=== PATIENT | female | born 1990 | race American Indian/Alaskan Native ===

== ENCOUNTER 2017-10-29 20:51 | Inpatient (IN) | payer MEDICAID, OTHER ==
[2017-10-29] MEDS ORDERED: NORMOSOL-R PH 7.4 1,000 ML IV ONE ×2 (22:28→23:04)
[2017-10-29] MEDS ORDERED: REGLAN IV ONE (23:14)
[2017-10-29] MEDS ORDERED: BICITRA PO ONE (23:14)
[2017-10-29 23:18] LABS: Hematocrit 26.1 % (30.3-42.9); Mean Corpuscular HGB Conc 31 % (30-34); Mean Corpuscular Volume 77 fl (79-97); Platelet Count 290 K/mm3 (140-440); Red Blood Count 3.37 M/mm3 (3.65-5.03); Red Cell Distribution Width 17.3 % (13.2-15.2)
[2017-10-29] MEDS ORDERED: PEPCID IV ONE (23:21)
[2017-10-29] MEDS ORDERED: PITOCin/NS 20 UNIT/1000ML DRIP 20,000 MILLIUNITS/1,000 ML BAG IV ONE (23:22)
[2017-10-29] MEDS ORDERED: ANCEF/STERILE WATER 2 GM/20 ML 2 GM/20 ML SYRINGE IV ONE (23:22)
[2017-10-29 23:26] LABS: Mean Corpuscular Hemoglobin 24 pg (28-32)
[2017-10-29] MEDS ORDERED: NORMOSOL R PH IV NR (23:45)
--- NOTE | 2017-10-29 23:46 | Anesthesia Consultation ---
Anesthesia Consult and Med Hx Date of service: 10/29/17 - Airway Anesthetic Teeth Evaluation: Good ROM Head & Neck: Adequate Mental/Hyoid Distance: Adequate Mallampati Class: Class II Intubation Access Assessment: Probably Good - Pulmonary Exam CTA: Yes - Cardiac Exam Cardiac Exam: RRR - Pre-Operative Health Status ASA Pre-Surgery Classification: ASA3, Emergency Proposed Anesthetic Plan: Epidural, Spinal - Pulmonary Hx Asthma: No COPD: No Hx Pneumonia: No - Cardiovascular System Hx Hypertension: No - Central Nervous System Hx Seizures: Yes (after twin delivery in 2012) Hx Psychiatric Problems: No - Endocrine Hx Renal Disease: No Hx End Stage Renal Disease: No Hx Non-Insulin Dependent Diabetes: Yes (gestational) Hx Hypothyroidism: No Hx Hyperthyroidism: No - Hematic Hx Anemia: No Hx Sickle Cell Disease: No - Other Systems Hx Alcohol Use: No Hx Obesity: Yes (morbid)
--- NOTE | 2017-10-29 23:46 | Anesthesia Day of Surgery ---
Anesthesia Day of Surgery - Day of Surgery Patient Examined: Yes Patient H&P Reviewed: Yes Patient is NPO: No
[2017-10-29] MEDS ORDERED: NACL 0.9% 500 ML 500 ML IV ONE ×2 (23:50→23:51)
--- NOTE | 2017-10-29 23:54 | History and Physical Report ---
History of Present Illness Date of examination: 10/29/17 Date of admission: 10/29/17 23:21 Chief complaint: NRFHTs History of present illness: Pt is a 27 year old -[place] female CANDIS 11/17/17 at 37w2d with di -di twin gestation presents to triage secondary to contractions. While in observation twin B was noted to have multiple deep variable decelerations down to the 60s with return to baseline. The decision was made to proceed with delivery secondary to nonreassuring status. The patient does not desire further fertility. She denies leakage of fluid or vaginal bleeding. She has had care per [facility] [facility] since 13 weeks with comanagement by a MFM. Her has also been, given by gestational diabetes A2 on glyburide. She also has a history of PIH and eclampsia as well as a history of anemia on iron twice daily. She has a history of genital herpes. She is GBS negative. 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: abnormal PAP smear, chlamydia (remote from ), herpes Family/Genetic History: hypertension, cancer Social history: no significant social history - Obstetrical History Expected Date of Delivery: 11/17/17 Actual Gestation: 37 Week(s) 3 Day(s) : 6 Para: 3 Hx # Term Pregnancies: 3 Number of Pregnancies: 0 Spontaneous Abortions: 0 Induced : 2 Number of Living Children: 4 Medications and Allergies Allergies Allergy/AdvReac Type Severity Reaction Status Date / Time No Known Allergies Allergy Unverified 04/27/13 11:59 Home Medications Medication Instructions Recorded Confirmed Last Taken Type Doxylamine Succinate/Vit B6 1 each PO Q6HR PRN #30 tablet. 07/16/15 01/14/16 Unknown Rx [Melissa Bolaños 10-10 mg Tablet] Active Meds: Active Medications Famotidine (Pepcid) 20 mg IV ONCE ONE Stop: 10/30/17 23:15 Parenteral Electrolytes (Normosol-R Ph 7.4) 1,500 mls @ 2,250 mls/hr IV PREOP NR Stop: 10/30/17 00:00 Sodium Chloride (Nacl 0.9% 500 Ml) 500 mls @ 0 mls/hr IV ONCE ONE Stop: 10/29/17 23:51 Sodium Chloride (Nacl 0.9% 500 Ml) 500 mls @ 0 mls/hr IV ONCE ONE Stop: 10/29/17 23:52 Review of Systems All systems: negative - Vital Signs Vital signs: Vital Signs Temp Resp 98.3 F 18 10/29/17 21:02 10/29/17 21:02 Temp Pulse Resp BP Pulse Ox 98.3 F 18 10/29/17 21:02 10/29/17 21:02 - Physical Exam Breasts: Positive: deferred Cardiovascular: Regular rate Lungs: Positive: Clear to auscultation Abdomen: Positive: soft (gravid, obese) Uterus: Positive: enlarged (gravid ) Extremities: Positive: normal - Obstetrical FHR: category 2 Uterine Contraction Monitor Mode: External Uterine Contraction Pattern: Irregular Uterine Tone Measurement Phase: Resting Uterine Contraction Intensity: Mild Results Result Diagrams: 10/29/17 22:40 Abnormal lab results 10/29/17 Range/Units 22:40 RBC 3.37 L (3.65-5.03) M/mm3 Hgb 8.0 L (10.1-14.3) gm/dl Hct 26.1 L (30.3-42.9) % MCV 77 L (79-97) fl MCH 24 L (28-32) pg RDW 17.3 H (13.2-15.2) % All other labs normal. Assessment and Plan A: Di-di twin IUP at 37w2d Nonreassuring status Undesired Fertility Anemia Genital Herpes Gestational Diabetes A2 GBS negative H/o eclampsia P: Proceed with primary section, bilateral tubal ligation and other indicated procedures.
[2017-10-30] MEDS ORDERED: NACL 0.9% IR ONE
[2017-10-30] MEDS ORDERED: WATER FOR IRRIG STERILE IR ONE
[2017-10-30] MEDS ORDERED: METHERGINE IM ONE (00:25)
[2017-10-30] MEDS ORDERED: ANCEF/STERILE WATER 2 GM/20 ML IV ONE (00:35)
[2017-10-30] MEDS ORDERED: DIPRIVAN 10 MG/ML IV ONE (00:47)
[2017-10-30] MEDS ORDERED: SUBLIMAZE ONE (00:50)
[2017-10-30] MEDS ORDERED: XYLOCAINE MPF 2% ONE (00:56)
[2017-10-30] MEDS ORDERED: QUELICIN ONE (00:56)
[2017-10-30] MEDS ORDERED: NEO SYNEPHRINE/NS Syringe(OR USE) IV ONE (01:00)
[2017-10-30] MEDS ORDERED: ARTIFICIAL TEARS OPHTH OINT ONE (01:05)
[2017-10-30] MEDS ORDERED: LACTATED RINGERS 2,000 ML ONE (01:19)
[2017-10-30] MEDS ORDERED: DILAUDID IV PRN (02:11)
[2017-10-30] MEDS ORDERED: ZOFRAN IV PRN (02:11)
--- NOTE | 2017-10-30 02:11 | Post Anesthesia Evaluation ---
- Post Anesthesia Evaluation Patient Participated: Yes Airway Patent: Yes Stable Respiratory Function: Yes Temp > 96.8F: Yes Pain Manageable: Yes Adequeate Hydration: Yes Anesthesia Complications: No
[2017-10-30] MEDS: DILAUDID IV PRN ×3 (02:15→02:45)
--- NOTE | 2017-10-30 02:17 | Procedure Note ---
OB Delivery Note - Delivery Date of Delivery: 10/30/17 Surgeon: MARISA PERES Social Services Counselor: ANA HAMPTON Estimated blood loss: other (1300 mL) - Section Preop diagnosis: nonreassuring FHR tracing, desires sterilization Postop diagnosis: same section procedure: section, primary low transverse, bilateral tubal ligation Disposition: PACU Complications: intra-op hemorrhage Narrative: Please see operative note. - Infant A at 1 minute: 1 at 5 minutes: 6 Infant Gender: Female (3256g (7lb 7oz) @ 0043 am) B at 1 minute: 1 at 5 minutes: 6 Gender: Female (2413g (5lb 5oz) @ 0044 am)
--- NOTE | 2017-10-30 02:17 | Operative Report ---
Operative Report Operative Report: Date of procedure: October 30, 2017 Preoperative diagnosis:1) Di-Di Twin IUP at 37w3d 2) Nonreassuring status 3) Malpresentation 4) Undesired Fertility Postoperative diagnosis: Same Procedure: 1) Primary low transverse section 2) Bilateral tubal ligation via Meckling Method Surgeon: Sania Leon M.D. Neuroradiologist: Jennifer Alaniz M.D. Anesthesia: GETA Findings: 1) Twin A: Viable female , Apgars 1,6 and 8, weight 3256 g, (7 lb 7 oz) in sebas breech presentation. Terminal Meconium Twin B: Viable female , Apgars 1,6 and 8, weight 2413 g, (5lb 5oz) in vertex presentation. Meconium stained amniotic fluid. 2) Normal-appearing uterus ovaries and tubes Estimated blood loss: 1300 mL IV fluids: 2700 mL Urine output: 125 mL, clear at the end of the procedure Drains: Payton to gravity Specimens: Placenta to pathology Disposition: Stable to PACU Indication for procedure: The patient is a 27-year-old -[place] female 6 para 30-4 at 37 weeks 2 days with Di-Di twin gestation who presented for contractions and was found to have nonreassuring status. The decision was made to proceed with delivery. The patient does not desire further fertility. Operation in detail: After the risks, benefits, alternatives and complications were explained to the patient she gave informed consent for the procedure. She was subsequently taken to the operating room where multiple attempts were made to obtain regional anesthesia were unsuccessful. heart tones were noted to be in the 160s. She was subsequently placed in the dorsal supine position with leftward tilt and prepped and draped in a normal sterile fashion. A timeout was performed. General endotracheal anesthesia was then induced without difficulty. A Pfannenstiel skin incision was made with the knife and carried down to the layer of the fascia with the Bovie. The fascia was incised in the midline and the fascial incision was extended bilaterally with the Bovie. The rectus muscles were then in the midline. The peritoneum was then entered bluntly. The peritoneal incision was extended with good visualization of the bladder. The peritoneal incision was then stretched. An John self-retaining retractor was placed for visualization. The bladder blade was placed. The vesicouterine peritoneum was grasped with smooth pickups and incised with Metzenbaum scissors. Metzenbaum scissors were used to extend the incision bilaterally. The bladder flap was then created digitally and the bladder blade was replaced. A transverse incision was made in the lower uterine segment with a knife and extended bilaterally with the bandage scissors. Twin A's buttocks were delivered, followed by legs, torso arms and head. She was bulb suctioned, the cord was clamped and cut and she was handed to waiting NICU staff. Amniotomy of second sac yielded meconium stained fluid. Twin B's head was delivered without difficulty followed by shoulders and body. was bulb suctioned at delivery, the cord was clamped and cut and handed to waiting NICU staff in attendance. The placentas were then delivered manually. The uterus was then exteriorized and cleared of all clots and debris. Uterine atony was noted and additional pitocin was added to the IV fluid. The hysterotomy was then reapproximated with 0 Vicryl in a running locked fashion. A second layer of the same suture was used in imbricating fashion. Additional [id number] of 2-0 and 0 Vicryl were used to obtain hemostasis at the right apex of the incision. Hemostasis was noted. Attention was then turned to the tubal ligation. The right tube was identified and followed to to the fimbriae. The tube was then grasped with a Erie and ligated via the Meckling method using 0 Chromic. Attention was then turned to the left tube which in a similar fashion was followed down to the fimbriae, grasped with a Casey, and ligated via the Meckling method using 0 Vicryl. Hemostasis was noted. The hysterotomy was inspected and hemostasis was noted. The uterus was then returned to the peritoneal cavity. All instruments were removed from the abdominal cavity. The gutters were irrigated and cleared of all clots and debris. The hysterotomy was again inspected and noted to be hemostatic. Surgicel was then placed over the hysterotomy. The peritoneum was reapproximated with 2-0 Vicryl in a running fashion incorporating the rectus muscles. The fascia was reapproximated with 0 Vicryl in a running fashion. The subcutaneous tissue was reapproximated with 3-0 Vicryl in a running fashion. The skin was reapproximated with 4-0 Vicryl in a subcuticular fashion. The incision was then covered with steri strips and a pressure dressing. The procedure was then ended. The patient tolerated the procedure well. She was subsequently extubated without difficulty and was taken to the PACU in stable condition. All instrument, lap, and needle counts were correct 3.
[2017-10-30] MEDS ORDERED: DILAUDID ONE (02:18)
[2017-10-30] MEDS ORDERED: NARCAN 0.4 MG/1 ML IV PRN ×3 (02:49→04:39)
[2017-10-30] MEDS ORDERED: NACL 0.9% 1000 ML 1,000 ML IV SCH ×2 (03:00→04:39)
[2017-10-30] MEDS ORDERED: MORPHINE PCA 30MG/30ML IV SCH ×2 (03:00→04:39)
[2017-10-30 04:36] LABS: Mean Corpuscular HGB Conc 28 % (30-34); Mean Corpuscular Volume 82 fl (79-97); Platelet Count 284 K/mm3 (140-440); Red Blood Count 2.79 M/mm3 (3.65-5.03); Red Cell Distribution Width 17.9 % (13.2-15.2)
[2017-10-30 04:39] LABS: Hematocrit 22.8 % (30.3-42.9); Hemoglobin 6.4 gm/dl (10.1-14.3); Mean Corpuscular Hemoglobin 23 pg (28-32)
[2017-10-30] MEDS ORDERED: PITOCin/NS 20 UNIT/1000ML DRIP 20 UNITS/1,000 ML BAG IV SCH ×2 (04:39)
[2017-10-30] MEDS ORDERED: BENADRYL IV PRN (04:39)
[2017-10-30] MEDS ORDERED: MYLICON PO PRN (04:39)
[2017-10-30] MEDS ORDERED: ANCEF/NS 1 GM/50 ML 1 GM/50 ML BAG IV SCH (04:39)
[2017-10-30] MEDS ORDERED: LANSINOH TP PRN (04:39)
[2017-10-30] MEDS ORDERED: TORADOL IV PRN (04:39)
[2017-10-30] MEDS ORDERED: TYLENOL PO PRN (04:39)
[2017-10-30] MEDS ORDERED: TUCKS PAD TP PRN (04:39)
[2017-10-30] MEDS ORDERED: D5LR 1,000 ML IV SCH (04:39)
[2017-10-30] MEDS ORDERED: SODIUM CHLORIDE FLUSH SYRINGE 10 ML IV NR (04:39)
[2017-10-30] MEDS ORDERED: LACTATED RINGERS 1,000 ML IV SCH (05:00)
[2017-10-30] MEDS ORDERED: HumuLIN R SUB-Q SCH (07:30)
[2017-10-30] MEDS: FEOSOL PO SCH ×2 (09:48→21:08)
[2017-10-30] MEDS: PERCOCET 5/325 PO PRN ×3 (11:02→21:09)
[2017-10-30] MEDS: ceFAZolin 1 GM in NACL 0.9% 20 ML IV SCH ×2 (15:00→23:19)
[2017-10-30 21:18] LABS: Hematocrit 25.9 % (30.3-42.9); Hemoglobin 8.4 gm/dl (10.1-14.3)
[2017-10-30] MEDS ORDERED: MILK OF MAGNESIA PO PRN (22:00)
[2017-10-30] MEDS ORDERED: PEPCID IV ONE (23:14)
[2017-10-31] MEDS: PERCOCET 5/325 PO PRN ×4 (01:13→17:55)
[2017-10-31] MEDS ORDERED: BOOSTRIX IM ONE (06:00)
[2017-10-31] MEDS: MOTRIN PO PRN (09:26)
[2017-10-31] MEDS ORDERED: M-M-R II VACCINE SUB-Q ONE (10:00)
--- NOTE | 2017-10-31 10:51 | Progress Note ---
Assessment and Plan POD#1 s/p c/sec twins s/p blood transfusion 6.4--8.4 mag citrate iron for anemia encourage ambulation VSS continue routine pot op orders discontinue accu checks Subjective - Subjective Date of service: 10/31/17 Principal diagnosis: s/p c/sec twins Patient reports: appetite normal, voiding normally, pain well controlled, flatus , ambulating normally : doing well, in NICU Objective - Vital Signs Latest vital signs: Vital Signs Temp Pulse Resp BP BP Pulse Ox 10/30/17 21:16 99.2 F 96 H 24 127/83 95 10/30/17 16:30 98.2 F 87 130/82 10/30/17 16:06 98.2 F 88 18 130/82 97 10/30/17 14:10 98.2 F 87 20 112/71 10/30/17 13:29 98.2 F 87 20 122/74 10/30/17 13:05 98.3 F 90 20 130/80 10/30/17 12:31 98.3 F 88 18 110/74 10/30/17 12:05 98.1 F 91 H 20 121/71 10/30/17 11:50 98.6 F 89 20 116/72 10/30/17 11:29 98.7 F 87 18 121/76 10/30/17 11:01 98.6 F 93 H 18 127/73 Intake and Output 10/30/17 10/31/17 10/31/17 23:59 07:59 15:59 Output Total 500 1200 Balance -500 -1200 Output: Urine 500 1200 Indwelling Catheter 500 Void 1200 Other: Total, Output Amount 500 400 # Voids Void 1 - Exam Breasts: Present: normal Cardiovascular: Present: Regular rate, Normal S1 Lungs: Present: Clear to auscultation, Normal air movement Abdomen: Present: normal appearance, soft, normal bowel sounds. Absent: distention, tenderness, guarding Uterus: Present: normal, firm, fundal height below umbilicus. Absent: bogginess , tenderness Extremities: Present: normal Deep Tendon Reflex Grade: Normal +2 Incision: Present: normal, dry, dressed - Labs Labs: Abnormal lab results 10/29/17 10/30/17 10/30/17 Range/Units 22:40 11:45 20:47 Hgb 8.4 L (10.1-14.3) gm/dl Hct 25.9 L (30.3-42.9) % POC Glucose 119 H (70-105) Crossmatch See Detail
[2017-10-31] MEDS ORDERED: CITRATE OF MAGNESIA PO PRN (10:52)
[2017-10-31] MEDS: FEOSOL PO SCH ×2 (11:58→22:56)
[2017-11-01] MEDS: PERCOCET 5/325 PO PRN ×3 (04:06→15:57)
--- NOTE | 2017-11-01 08:03 | Progress Note ---
Assessment and Plan POD#2 s/p c/sec twins s/p blood transfusion 6.4--8.4 mag citrate iron for anemia encourage ambulation VSS continue routine pot op orders d/c home tomorrow Subjective - Subjective Date of service: 11/01/17 Principal diagnosis: s/p c/sec twins Patient reports: appetite normal, voiding normally, pain well controlled, flatus , ambulating normally [place]: doing well (one baby in NIccu one in room), in NICU Objective - Vital Signs Latest vital signs: Vital Signs Temp Pulse Resp BP BP Pulse Ox 11/01/17 01:15 99.0 F 93 H 20 129/80 100 10/31/17 18:13 98.6 F 94 H 18 113/60 100 10/31/17 17:55 20 10/31/17 11:59 20 10/31/17 09:59 97.7 F 82 18 148/83 148/83 97 Intake and Output 10/31/17 11/01/17 11/01/17 22:59 07:59 15:59 Intake Total Output Total Balance Intake: Intake, Free Water Output: Urine Void Other: Total, Output Amount # Voids Void - Exam Breasts: Present: normal Cardiovascular: Present: Regular rate, Normal S1 Lungs: Present: Clear to auscultation, Normal air movement Abdomen: Present: normal appearance, soft. Absent: distention, tenderness, guarding Vulva: both: normal Uterus: Present: normal Extremities: Present: normal Deep Tendon Reflex Grade: Normal +2 Incision: Present: normal, dry, intact
[2017-11-01] MEDS: FEOSOL PO SCH (10:20)
[2017-11-01] MEDS: MOTRIN PO PRN (18:20)
[2017-11-02] MEDS: MOTRIN PO PRN ×2 (00:41→11:31)
[2017-11-02] MEDS: FEOSOL PO SCH ×2 (00:42→11:29)
--- NOTE | 2017-11-02 08:12 | Progress Note ---
Assessment and Plan A: POD#3 s/p primary section secondary to malpresentation, NRFHTs and twin Anemia s/p 2 unts PRBCs One twin in NICU P: Routine postop care. Discharge this evening with f/u in 1 week for blood pressure check. Subjective - Subjective Date of service: 11/02/17 Principal diagnosis: s/p c/sec twins Interval history: Pt feel bloated this morning. She reports flatus and a small bowel movement. One of her babies in the NICU. Patient reports: appetite normal, voiding normally, flatus (minimal ), bowel movement (small ), ambulating normally, no dizzy ambulation : doing well (Twin A ), in NICU (Twin B ) Objective - Vital Signs Latest vital signs: Vital Signs Temp Pulse Resp BP BP Pulse Ox 11/01/17 23:03 99 F 73 18 110/63 11/01/17 17:29 98.1 F 81 18 114/61 96 11/01/17 15:57 20 11/01/17 10:20 20 11/01/17 08:25 97.9 F 84 18 112/62 96 Intake and Output 11/01/17 11/02/17 11/02/17 22:59 06:59 14:59 Intake Total 360 Balance 360 Intake: Intake, Free Water 360 Other: # Voids Void 3 2 - Exam Breasts: Present: deferred Cardiovascular: Present: Regular rate Lungs: Present: Clear to auscultation Abdomen: Present: soft, distention (moderate ), normal bowel sounds Uterus: Present: fundal height at umbilicus Extremities: Present: edema
--- NOTE | 2017-11-02 08:16 | Discharge Summary ---
Providers - Providers Date of Admission: 10/29/17 23:21 Date of discharge: 11/02/17 Attending physician: MARISA PERES 10/30/17 04:39 Consult to Cmo & President [CONS] Routine Reason For Exam: Primary care physician: MARISA PERES Hospitalization Reason for admission: other (Non reassuring status ) Delivery: Procedure: section, bilateral tubal ligation, primary low transverse Procedure details: Please see operative note. Incision: intact Other procedures: none complications: none Discharge diagnosis: other (twin delivery ) baby: twins Hospital course: Pt tolerated primary with tubal which she tolerated well. Her postoperative course was uncomplicated and she met discharge criteria on POD#3. Pt will follow up in 1 wk for blood pressure check. Condition at discharge: Stable Disposition: DC-01 TO HOME OR SELFCARE - Discharge Diagnoses (1) Monochorionic diamniotic twin gestation in third trimester Status: Acute (2) S/P section Status: Acute (3) Morbid obesity Status: Acute (4) Anemia Status: Chronic Qualifiers: Anemia type: unspecified type Qualified Code(s): D64.9 - Anemia, unspecified Plan - Discharge Medications Prescriptions: Docusate Sodium [Colace] 100 mg PO BID PRN #30 capsule PRN Reason: Constipation Ferrous Sulfate 325 mg PO TID #60 tablet. Ibuprofen [Motrin] 600 mg PO Q8H PRN #30 tablet PRN Reason: Pain oxyCODONE /ACETAMINOPHEN [Percocet 5/325] 1 tab PO Q6HR PRN #30 tablet PRN Reason: Pain - Provider Discharge Summary Activity: routine, no sex for 6 weeks, no heavy lifting 4 weeks, no strenuous exercise Diet: routine Instructions: routine Additional instructions: [] Smoking cessation referral if applicable(refer to patient education folder for contact #) [] Refer to [facility] Booklet Call your doctor immediately for: * Fever > 100.5 * Heavy vaginal bleeding ( >1 pad per hour) * Severe persistent headache * Shortness of breath * Reddened, hot, painful area to leg or breast * Drainage or odor from incision. * Keep incision clean and dry at all times and follow doctor's instructions regarding bathing/showering - Follow up plan Follow up: MARISA PERES MD [Primary Care Provider] - 7 Days Forms: [facility] Discharge Summary, Discharge Signature Page
[2017-11-02] MEDS ORDERED: MILK OF MAGNESIA PO SCH (09:00)
[2017-11-02] MEDS ORDERED: COLACE PO SCH (10:00)
[2017-11-02] MEDS: PERCOCET 5/325 PO PRN (11:30)
[2017-11-02 17:12] VITALS: BP 103/56
== END 2017-11-02 18:48 | disposition home or self-care (01) | DRG 765 ==
LOC: TRG 20:51 → APU 23:21 → OB 10-30 04:36
PROVIDERS: ADMIT Obstetrics & Gynecology; ATTEND Obstetrics & Gynecology
PROC: 10D00Z1 Extraction of Products of Conception, Low, Open Approach (ICD-10-PCS; principal; 2017-10-30)
PROC: 0UT70ZZ Resection of Bilateral Fallopian Tubes, Open Approach (ICD-10-PCS; 2017-10-30)
PROC: 30233N1 Transfusion of Nonautologous Red Blood Cells into Peripheral Vein, Percutaneous Approach (ICD-10-PCS; 2017-10-30)
PROC: 3E0234Z Introduction of Serum, Toxoid and Vaccine into Muscle, Percutaneous Approach (ICD-10-PCS; 2017-10-31)
DX: O98.32 Other infections with a predominantly sexual mode of transmission complicating childbirth (principal); Z68.42 Body mass index [BMI] 45.0-49.9, adult; O99.214 Obesity complicating childbirth; E66.01 Morbid (severe) obesity due to excess calories; O30.043 Twin pregnancy, dichorionic/diamniotic, third trimester; O76 Abnormality in fetal heart rate and rhythm complicating labor and delivery; O24.425 Gestational diabetes mellitus in childbirth, controlled by oral hypoglycemic drugs; O99.02 Anemia complicating childbirth; D64.9 Anemia, unspecified; A60.00 Herpesviral infection of urogenital system, unspecified; O32.9XX0 Maternal care for malpresentation of fetus, unspecified, not applicable or unspecified; O34.211 Maternal care for low transverse scar from previous cesarean delivery; Z3A.37 37 weeks gestation of pregnancy; Z23 Encounter for immunization; Z37.2 Twins, both liveborn; O32.1XX1 Maternal care for breech presentation, fetus 1; O77.0 Labor and delivery complicated by meconium in amniotic fluid; Z30.2 Encounter for sterilization
CPT/HCPCS: 36415; 82962; 85014; 85018; 85027; 86850; 86900; 86901; 86920; 88302; 88307; 90471; 90715; J0330; J0690; J1170; J1815; J2210; J2270; J2370; J2590; J2704; J2765; J3010; J7030; J7120; P9016

== ENCOUNTER 2021-03-05 23:11 | Emergency (ER) | payer MEDICAID, OTHER ==
[2021-03-06 00:59] VITALS: BP 133/77
[2021-03-06 01:47] LABS: Bacteria,Urine 4+ /HPF (Negative); Bilirubin,Urine NEG (Negative); Blood,Urine LG (Negative); Color,Urine Yellow (Yellow); Mucus,Urine 3+ /HPF
[2021-03-06 01:48] LABS: HCG Qualitative,Urine Negative (Negative)
[2021-03-06 01:50] LABS: WBC,Urine > 182.0 /HPF (0.0-6.0)
== END 2021-03-06 03:33 | disposition left against medical advice (07) ==
LOC: ED 23:11
DX: R31.9 Hematuria, unspecified (principal); R30.0 Dysuria; Z53.21 Procedure and treatment not carried out due to patient leaving prior to being seen by health care provider
CPT/HCPCS: 81001; 81025